=== PATIENT | male | born 1955 | race African-American/Black ===

== ENCOUNTER 2017-06-12 02:16 | Observation (INO) | payer OTHER ==
[~2017-06-12] VITALS: Ht 172.7 cm; Wt 127.4 kg
[~2017-06-12 02:16] MED LIST: FLEXERIL10 MG PO; GRALISE600 MG PO; KEFLEX500 MG PO; PERCOCET 5/31 TABLET PO; TORADOL10 MG PO; ZESTRIL40 MG PO
[2017-06-12 03:03] LABS: HEMATOCRIT 40.6 % (38.0-50.0); HEMOGLOBIN 13.6 G/DL (12.5-16.6); MCH 29.6 PG (29.0-34.0); MCHC 33.5 G/DL (30.0-36.0); MCV 88.5 FL (86-99); PLATELET COUNT 191 K/uL (156-360); RBC DIS.WIDTH-SD 45.1 % (39-53); RED BLOOD COUNT 4.59 M/uL (4.00-5.50); WHITE BLOOD COUNT 9.4 K/uL (4.1-10.2)
[2017-06-12 03:16] LABS: CHLORIDE 105 mEq/L (99-109); SODIUM 143 mEq/L (136-147)
[2017-06-12 03:18] LABS: GLUCOSE 105 mg/dL (70-99)
[2017-06-12 03:22] LABS: CREATININE 1.4 mg/dL (0.6-1.3); GFR ESTIMATE (CALCULATED) > 59 mL/min/ (58.99-99999)
[2017-06-12 03:23] LABS: UREA NITROGEN (BUN) 19 mg/dL (9-23)
[2017-06-12 03:33] LABS: TROP-I INTERPRETATION NEGATIVE; TROPONIN-I < 0.01 ng/mL (0.0-0.30)
[2017-06-12 05:09] LABS: ALBUMIN 4.2 g/dL (3.2-4.8)
[2017-06-12 05:12] LABS: TOTAL PROTEIN 7.7 g/dL (6.4-8.3)
[2017-06-12 05:13] LABS: TOTAL BILIRUBIN 0.3 mg/dL (0.0-1.0)
[2017-06-12 05:15] LABS: ALKALINE PHOSPHATASE 61 IU/L (3-129)
[2017-06-12 05:17] LABS: AST (GOT) 20 IU/L (2-34); DIRECT BILIRUBIN 0.2 mg/dL (0.0-0.3)
[2017-06-12 05:18] LABS: ALT (GPT) 13 IU/L (3-49); LIPASE 15 U/L (1.0-51.0)
[2017-06-12 07:39] LABS: TROP-I INTERPRETATION NEGATIVE; TROPONIN-I 0.02 ng/mL (0.0-0.30)
[2017-06-12 08:40] LABS: HDL CHOLESTEROL 41 MG/DL (Desirable>=40); LDL CHOLESTEROL 98 mg/dL (Desirable<100); NON-HDL CHOLESTEROL 129 mg/dL (Desirable<160); TOTAL CHOLESTEROL 170 mg/dL (Desirable<200); TRIGLYCERIDES 154 MG/DL (Normal: <150)
[2017-06-12 12:30] VITALS: BP 168/83
[2017-06-12 13:35] LABS: TROP-I INTERPRETATION NEGATIVE; TROPONIN-I 0.06 ng/mL (0.0-0.30)
== END 2017-06-12 15:02 | disposition left against medical advice (07) ==
LOC: EME 02:16 → EDOF 07:48 → ENRESERV 07:58 → CANRESERV 14:27 → ENRESERV 14:27 → EDOF 15:02
PROVIDERS: Emergency Medicine; Internal Medicine
DX: R07.9 Chest pain, unspecified (principal); I10 Essential (primary) hypertension; F17.200 Nicotine dependence, unspecified, uncomplicated; R42 Dizziness and giddiness; Z88.0 Allergy status to penicillin
CPT/HCPCS: 71046; 76705; 80048; 80061; 80076; 83036; 83690; 84484; 85027; 93005; 99281; 99284; G0378; J2270

== ENCOUNTER 2017-07-02 21:47 | Emergency (ER) | payer OTHER ==
[~2017-07-02] VITALS: Ht 172.7 cm; Wt 131.2 kg
[2017-07-03] MEDS ORDERED: MOTRIN600 MG PO (00:05)
[2017-07-03] MEDS ORDERED: PERCOCET 5/31 TABLET PO (00:05)
[2017-07-03 01:30] VITALS: BP 184/90
== END 2017-07-03 01:30 | disposition home or self-care (01) ==
LOC: EME 21:47
DX: M54.5 Low back pain (principal); I10 Essential (primary) hypertension; V43.52XA Car driver injured in collision with other type car in traffic accident, initial encounter; G89.29 Other chronic pain; F17.200 Nicotine dependence, unspecified, uncomplicated; Z88.0 Allergy status to penicillin
CPT/HCPCS: 99281; 99284

== ENCOUNTER 2017-07-24 22:06 | Inpatient (IN) | payer OTHER ==
[~2017-07-24] VITALS: Ht 172.7 cm; Wt 125.5 kg
[~2017-07-24 22:06] MED LIST changes: +MOTRIN600 MG PO
[2017-07-24 22:56] LABS: HEMATOCRIT 38.9 % (38.0-50.0); HEMOGLOBIN 13.1 G/DL (12.5-16.6); MCH 29.3 PG (29.0-34.0); MCHC 33.7 G/DL (30.0-36.0); PLATELET COUNT 174 K/uL (156-360); RBC DIS.WIDTH-CV 14.9 % (11.8-14.6); RBC DIS.WIDTH-SD 48.1 % (39-53); RED BLOOD COUNT 4.47 M/uL (4.00-5.50); WHITE BLOOD COUNT 7.7 K/uL (4.1-10.2)
[2017-07-24 23:08] LABS: ALBUMIN 3.7 g/dL (3.2-4.8); CHLORIDE 108 mEq/L (99-109); POTASSIUM 4.1 mEq/L (3.7-5.4); SODIUM 141 mEq/L (136-147)
[2017-07-24 23:11] LABS: GLUCOSE 103 mg/dL (70-99); INTER. NORMALIZED RATIO 1.1; TOTAL PROTEIN 6.8 g/dL (6.4-8.3)
[2017-07-24 23:13] LABS: TOTAL BILIRUBIN 0.3 mg/dL (0.0-1.0)
[2017-07-24 23:14] LABS: ALKALINE PHOSPHATASE 69 IU/L (3-129); GFR ESTIMATE (CALCULATED) > 59 mL/min/ (58.99-99999); PTT 29.7 SEC (25-37)
[2017-07-24 23:15] LABS: UREA NITROGEN (BUN) 21 mg/dL (9-23)
[2017-07-24 23:16] LABS: AST (GOT) 17 IU/L (2-34)
[2017-07-24 23:17] LABS: ALT (GPT) 18 IU/L (3-49)
[2017-07-24 23:18] LABS: LIPASE 24 U/L (1.0-51.0)
[2017-07-24 23:23] LABS: TROP-I INTERPRETATION NEGATIVE; TROPONIN-I 0.03 ng/mL (0.0-0.30)
[2017-07-25] MEDS ORDERED: LISINOPRIL40 MG PO (00:13)
[2017-07-25 02:11] LABS: TROP-I INTERPRETATION NEGATIVE; TROPONIN-I 0.03 ng/mL (0.0-0.30)
[2017-07-25 02:50] VITALS: BP 179/89
[2017-07-25 05:56] LABS: TROP-I INTERPRETATION NEGATIVE; TROPONIN-I 0.03 ng/mL (0.0-0.30)
[2017-07-25 06:01] LABS: HDL CHOLESTEROL 36 MG/DL (Desirable>=40); LDL CHOLESTEROL 106 mg/dL (Desirable<100); NON-HDL CHOLESTEROL 122 mg/dL (Desirable<160); TOTAL CHOLESTEROL 158 mg/dL (Desirable<200); TRIGLYCERIDES 82 MG/DL (Normal: <150)
[2017-07-25 07:46] VITALS: BP 146/72
[2017-07-25 11:11] LABS: TROP-I INTERPRETATION NEGATIVE; TROPONIN-I 0.03 ng/mL (0.0-0.30)
[2017-07-25 12:01] VITALS: BP 144/77
[2017-07-25 16:41] VITALS: BP 145/81
[2017-07-25 19:30] VITALS: BP 138/87
[2017-07-25 23:32] VITALS: BP 121/69
[2017-07-26 02:22] VITALS: BP 137/70
[2017-07-26 08:50] VITALS: BP 204/102
[2017-07-26 13:25] VITALS: BP 115/79
[2017-07-26 15:57] VITALS: BP 127/88
[2017-07-26 19:40] VITALS: BP 121/78
[2017-07-26 23:18] VITALS: BP 147/84
[2017-07-27 05:57] VITALS: BP 138/76
[2017-07-27 06:22] LABS: BASOPHIL (%) 0.9 % (0-1); BASOPHIL COUNT 0.1 K/uL (0-0.1); EOSINOPHIL (%) 2.8 % (0-5); EOSINOPHIL COUNT 0.2 K/uL (0-0.3); HEMATOCRIT 38.2 % (38.0-50.0); HEMOGLOBIN 12.7 G/DL (12.5-16.6); IMMATURE GRANULOCYTE (%) 0.1 % (0.0-0.7); LYMPHOCYTE COUNT 2.1 K/uL (1.0-2.8); MCH 29.2 PG (29.0-34.0); MCHC 33.2 G/DL (30.0-36.0); MCV 87.8 FL (86-99); MONOCYTE (%) 8.8 % (3-12); MONOCYTE COUNT 0.6 K/uL (0-0.8); NEUTROPHIL (%) 56.4 % (45-76); NEUTROPHIL COUNT 3.8 K/uL (1.8-6.4); PLATELET COUNT 170 K/uL (156-360); RBC DIS.WIDTH-CV 15.1 % (11.8-14.6); RBC DIS.WIDTH-SD 48.7 % (39-53); RED BLOOD COUNT 4.35 M/uL (4.00-5.50); WHITE BLOOD COUNT 6.8 K/uL (4.1-10.2)
[2017-07-27 06:59] LABS: CHLORIDE 102 MEQ/L (99-109); GFR ESTIMATE (CALCULATED) > 59 mL/min/ (58.99-99999); GLUCOSE 90 mg/dL (70-99); POTASSIUM 4.2 MEQ/L (3.7-5.4); SODIUM 140 MEQ/L (136-147); UREA NITROGEN (BUN) 20 mg/dL (9-23)
[2017-07-27 07:59] VITALS: BP 183/97
[2017-07-27 15:50] VITALS: BP 147/83
[2017-07-27 19:53] VITALS: BP 169/81
[2017-07-28] VITALS (8 sets, daily range): BP systolic 111–147; BP diastolic 63–83
[2017-07-28 06:14] LABS: BASOPHIL (%) 0.5 % (0-1); EOSINOPHIL (%) 1.8 % (0-5); EOSINOPHIL COUNT 0.1 K/uL (0-0.3); HEMATOCRIT 37.2 % (38.0-50.0); HEMOGLOBIN 12.6 G/DL (12.5-16.6); IMMATURE GRANULOCYTE (%) 0.5 % (0.0-0.7); LYMPHOCYTE (%) 14.2 % (15-42); LYMPHOCYTE COUNT 0.9 K/uL (1.0-2.8); MCH 29.2 PG (29.0-34.0); MCHC 33.9 G/DL (30.0-36.0); MCV 86.3 FL (86-99); MONOCYTE (%) 9.2 % (3-12); MONOCYTE COUNT 0.6 K/uL (0-0.8); NEUTROPHIL (%) 73.8 % (45-76); NEUTROPHIL COUNT 4.9 K/uL (1.8-6.4); RBC DIS.WIDTH-SD 47.8 % (39-53); RED BLOOD COUNT 4.31 M/uL (4.00-5.50); WHITE BLOOD COUNT 6.6 K/uL (4.1-10.2)
[2017-07-28 06:28] LABS: CHLORIDE 106 MEQ/L (99-109); POTASSIUM 4.1 MEQ/L (3.7-5.4); SODIUM 139 MEQ/L (136-147)
[2017-07-28 06:55] LABS: CREATININE 1.1 MG/DL (0.6-1.3); GFR ESTIMATE (CALCULATED) > 59 mL/min/ (58.99-99999); UREA NITROGEN (BUN) 16 mg/dL (9-23)
[2017-07-28 07:00] LABS: GLUCOSE 137 mg/dL (70-99)
[2017-07-28 07:22] LABS: HEMATOLOGY COMMENT 1 SMEAR COMPATIBLE; PLAT.SUFFICIENCY DECREASED; PLATELET COUNT 131 K/uL (156-360)
[2017-07-29 05:02] VITALS: BP 121/65
[2017-07-29 08:45] VITALS: BP 102/52
[2017-07-29] MEDS ORDERED: BRILINTA90 MG PO (10:09)
[2017-07-29] MEDS ORDERED: ATORVASTATIN CA40 MG PO (10:09)
[2017-07-29] MEDS ORDERED: NICOTINE PATCH1 EAC2 TD (10:09)
[2017-07-29] MEDS ORDERED: NITROSTAT0.4 MG SL (10:10)
[2017-07-29] MEDS ORDERED: ASPIR-LOW81 MG PO (10:10)
[2017-07-29] MEDS ORDERED: APRESOLINE10 MG PO (10:10)
[2017-07-29] MEDS ORDERED: AMLODIPINE BESYL5 MG PO (10:10)
[2017-07-29] MEDS ORDERED: PERCOCET 5/31 TABLET PO (11:13)
== END 2017-07-29 11:50 | disposition home or self-care (01) | DRG 247 ==
LOC: EME 22:06 → EDOF 07-25 01:41 → 4EAST 07-25 01:41 → ENRESERV 07-25 01:48 → 4EAST 07-25 02:38
PROVIDERS: Emergency Medicine; Hospitalist; Internal Medicine
DX: I25.110 Atherosclerotic heart disease of native coronary artery with unstable angina pectoris (principal); F17.200 Nicotine dependence, unspecified, uncomplicated; I24.9 Acute ischemic heart disease, unspecified; R55 Syncope and collapse; I10 Essential (primary) hypertension; Z88.0 Allergy status to penicillin; E66.01 Morbid (severe) obesity due to excess calories; Z68.41 Body mass index [BMI] 40.0-44.9, adult; I34.0 Nonrheumatic mitral (valve) insufficiency; T40.2X5A Adverse effect of other opioids, initial encounter; R00.1 Bradycardia, unspecified; I49.3 Ventricular premature depolarization; Z79.82 Long term (current) use of aspirin; F41.9 Anxiety disorder, unspecified; Z82.49 Family history of ischemic heart disease and other diseases of the circulatory system; R51 Headache; Z83.3 Family history of diabetes mellitus
CPT/HCPCS: 70450; 71045; 78452; 80048; 80053; 80061; 83690; 83880; 84484; 85025; 85027; 85347; 85379; 85610; 85730; 93005; 93017; 93306; 99281; 99284; A9500; C1725; C1769; C1874; C1887; C1894; J0360; J0461; J1170; J1644; J2060; J2250; J2270; J2405; J2785; J2930; J3010; S0028